=== PATIENT | female | born 1950 | race African-American/Black ===

== ENCOUNTER 2022-02-23 12:11 | Inpatient (IN) | payer MEDICARE, MEDICAID ==
[~2022-02-23] VITALS: Ht 170.2 cm; Wt 195.0 kg
[2022-02-23] VITALS (7 sets, daily range): BP systolic 99–134; BP diastolic 50–76
[~2022-02-23 12:11] MED LIST: LOVA10TA54 PO; METF-414 PO; METH-372 PO; METO25TA6 PO; NEBI5TAB3 PO; VALS160T2 PO
[2022-02-23] MEDS ORDERED: IPRATROPIUM BROMIDE (0.02%) 0.5MG/2.5ML NEB HHN STA (13:20)
[2022-02-23] MEDS ORDERED: ALBUTEROL (0.083%) 2.5MG/3ML NEB HHN STA (13:20)
[2022-02-23] MEDS ORDERED: FUROSEMIDE 40MG/4ML VIAL IVP ONE ×2 (13:30→16:21)
[2022-02-23 14:59] LABS: BASOPHILS % 0.7 % (0.0-2.0); EOSINOPHILS % 0.3 % (0.0-5.0); HEMATOCRIT. 42.4 % (36.0-48.0); HEMOGLOBIN. 13.3 g/dL (12.0-16.0); LYMPHOCYTES % 9.2 % (20.0-50.0); MEAN CORPUSCULAR VOLUME 86.1 fL (81.0-99.0); MEAN PLATELET VOLUME 8.7 fl (7.4-10.4); MONOCYTES % 8.2 % (2.0-8.0); NEUTROPHILS % 81.6 % (40.0-76.0); PLATELET 248 x1000/uL (130-400); RED BLOOD CELL COUNT 4.93 mill/uL (4.2-5.4); RED CELL DISTRIBUTION WIDTH 16.2 % (11.6-14.6)
[2022-02-23 15:02] LABS: CHLORIDE 99 mEq/L (98-107)
[2022-02-23] MEDS ORDERED: VANCOMYCIN 1G PREMIX 200 ML IV SCH ×2 (15:15→16:30)
[2022-02-23] MEDS ORDERED: LEVOFLOXACIN 500MG PREMIX 100 ML IV ONE (15:15)
[2022-02-23] MEDS: LISINOPRIL 10MG TABLET PO SCH (18:45)
[2022-02-23] MEDS ORDERED: CLONIDINE 0.1MG TABLET PO PRN (18:45)
[2022-02-23] MEDS ORDERED: IPRATROPIUM/ALBUTEROL 0.5-3(2.5)MG/3ML NEB HHN PRN (18:45)
[2022-02-23] MEDS ORDERED: LORAZEPAM 0.5MG TABLET PO PRN (18:45)
[2022-02-23] MEDS ORDERED: ONDANSETRON HCL 4MG/2ML INJ IV PRN (18:45)
[2022-02-23] MEDS: ENOXAPARIN 40MG/0.4ML SYR SUBCUT SCH (20:00)
[2022-02-23 20:50] LABS: CHLORIDE 103 mEq/L (98-107)
[2022-02-23] MEDS: METOPROLOL TARTRATE 25MG TABLET PO SCH (21:00)
[2022-02-23] MEDS: BLOOD SUGAR DIAGNOSTIC STRIP TEST SCH (21:17)
[2022-02-23] MEDS: FAMOTIDINE 20MG TABLET PO SCH (21:20)
[2022-02-23] MEDS: SODIUM CHLORIDE 0.9% INJ 3ML FLUSH IVF SCH (21:20)
[2022-02-23 23:27] LABS: CREATINE KINASE MB FRACTION 1.7 ng/mL (0.5-3.6)
[2022-02-24] VITALS (11 sets, daily range): BP systolic 100–130; BP diastolic 54–79
[2022-02-24] MEDS: SODIUM CHLORIDE 0.9% INJ 3ML FLUSH IVF SCH ×3 (05:35→21:34)
[2022-02-24 06:20] LABS: HEMOGLOBIN. 12.7 g/dL (12.0-16.0); LYMPHOCYTES % 17.8 % (20.0-50.0); MEAN CORPUSCULAR HEMOGLOBIN 27.1 pg (28.0-32.0); MEAN CORPUSCULAR VOLUME 85.2 fL (81.0-99.0); MEAN PLATELET VOLUME 7.9 fl (7.4-10.4); MONOCYTES % 12.3 % (2.0-8.0); NEUTROPHILS % 66.9 % (40.0-76.0); PLATELET 250 x1000/uL (130-400)
[2022-02-24 06:42] LABS: CREATINE KINASE MB FRACTION 1.3 ng/mL (0.5-3.6); T4 FREE 0.17 ng/dL (0.76-1.46)
[2022-02-24] MEDS: TRAMADOL 50MG TABLET PO PRN ×2 (07:11→11:32)
[2022-02-24] MEDS: BLOOD SUGAR DIAGNOSTIC STRIP TEST SCH ×5 (07:30→21:36)
[2022-02-24] MEDS ORDERED: BETAMETHASONE DIPROPIONATE 0.05% TOP SCH (09:00)
[2022-02-24] MEDS: METOPROLOL TARTRATE 25MG TABLET PO SCH (09:00)
[2022-02-24] MEDS: LISINOPRIL 10MG TABLET PO SCH (09:00)
[2022-02-24] MEDS ORDERED: FUROSEMIDE 40MG/4ML VIAL IV SCH (09:00)
[2022-02-24] MEDS: FAMOTIDINE 20MG TABLET PO SCH ×2 (09:07→21:32)
[2022-02-24] MEDS: ENOXAPARIN 40MG/0.4ML SYR SUBCUT SCH ×2 (09:08→21:30)
[2022-02-24] MEDS: ASPIRIN 81MG EC TABLET PO SCH (09:11)
[2022-02-24 10:32] LABS: CHLORIDE 102 mEq/L (98-107)
[2022-02-24] MEDS ORDERED: AZITHROMYCIN 500MG/250ML 250 ML IV SCH (11:15)
[2022-02-24 11:58] LABS: BG BASE EXCESS -1.5 mmol/L (-2.0-2.0); BG CARBOXYHEMOGLOBIN 0.7 % (0.5-1.5); BG DEOXYHEMOGLOBIN 9.7 % (0.0-5.0); BG FRACTION INSPIRED OXYGEN 21; BG HCO3 ACT 22.9 mmol/L (22.0-26.0); BG METHEMOGLOBIN 0.2 % (0.0-1.5); BG OXYGEN SATURATION 90.2 % (92.0-98.5); BG OXYHEMOGLOBIN 89.4 % (94.0-97.0); BG PCO2 37.5 mmHg (35.0-45.0); BG PH 7.403 (7.350-7.450); BG PO2 58.7 mmHg (75.0-100.0); BG SAMPLE SITE RIGHT RADIAL; BG TOTAL HEMOGLOBIN 14.3 g/dL (12.0-18.0); BG VENT MODE ROOM AIR
[2022-02-24] MEDS: METHYLPREDNISOLONE SOD SUCC 40 MG/ML VIAL IV SCH ×2 (12:51→21:34)
[2022-02-24] MEDS ORDERED: IOHEXOL-350 100 ML BOTTLE ONE (15:51)
[2022-02-24] MEDS: AZITHROMYCIN 500MG in DEXTROSE 5% WATER 250ML IV SCH ×2 (16:35→16:38)
[2022-02-24] MEDS: FUROSEMIDE 100MG/10ML VIAL IV SCH (18:45)
[2022-02-24] MEDS ORDERED: DEXTROSE 50% WATER 50ML SYRINGE IV PRN (20:30)
[2022-02-24] MEDS: INSULIN LISPRO 100 UNITS/ML SUBCUT SCH (21:33)
[2022-02-25] VITALS (13 sets, daily range): BP systolic 78–179; BP diastolic 45–119
[2022-02-25] MEDS: FUROSEMIDE 100MG/10ML VIAL IV SCH ×3 (01:03→18:04)
[2022-02-25] MEDS: TRAMADOL 50MG TABLET PO PRN ×3 (02:52→18:03)
[2022-02-25 05:25] LABS: CHLORIDE 102 mEq/L (98-107)
[2022-02-25 05:38] LABS: BASOPHILS % 0.3 % (0.0-2.0); EOSINOPHILS % 0.1 % (0.0-5.0); HEMATOCRIT. 42.9 % (36.0-48.0); HEMOGLOBIN. 13.3 g/dL (12.0-16.0); LYMPHOCYTES % 9.3 % (20.0-50.0); MEAN CORPUSCULAR HEMOGLOBIN 26.9 pg (28.0-32.0); MEAN PLATELET VOLUME 9.4 fl (7.4-10.4); MONOCYTES % 4.5 % (2.0-8.0); NEUTROPHILS % 85.8 % (40.0-76.0); PLATELET 201 x1000/uL (130-400); RED BLOOD CELL COUNT 4.93 mill/uL (4.2-5.4); RED CELL DISTRIBUTION WIDTH 16.2 % (11.6-14.6)
[2022-02-25] MEDS: SODIUM CHLORIDE 0.9% INJ 3ML FLUSH IVF SCH ×2 (06:00→21:30)
[2022-02-25] MEDS: METHYLPREDNISOLONE SOD SUCC 40 MG/ML VIAL IV SCH (06:00)
[2022-02-25] MEDS: BLOOD SUGAR DIAGNOSTIC STRIP TEST SCH ×7 (07:30→21:30)
[2022-02-25] MEDS: INSULIN LISPRO 100 UNITS/ML SUBCUT SCH ×4 (08:00→21:00)
[2022-02-25] MEDS: FAMOTIDINE 20MG TABLET PO SCH ×2 (09:45→21:26)
[2022-02-25] MEDS: LISINOPRIL 10MG TABLET PO SCH (09:45)
[2022-02-25] MEDS: LEVOTHYROXINE SODIUM 25MCG TABLET PO SCH (09:45)
[2022-02-25] MEDS: ENOXAPARIN 40MG/0.4ML SYR SUBCUT SCH ×2 (09:46→21:26)
[2022-02-25] MEDS: DILTIAZEM HCL 30MG TABLET PO SCH ×2 (14:24→21:30)
[2022-02-25] MEDS: AZITHROMYCIN 500MG in DEXTROSE 5% WATER 250ML IV SCH ×2 (14:25→14:30)
[2022-02-25] MEDS ORDERED: METHYLPREDNISOLONE SOD SUCC 40 MG/ML VIAL IV SCH (17:00)
[2022-02-26] VITALS (15 sets, daily range): BP systolic 86–139; BP diastolic 28–109
[2022-02-26] MEDS: FUROSEMIDE 100MG/10ML VIAL IV SCH ×3 (00:04→17:22)
[2022-02-26] MEDS: DILTIAZEM HCL 30MG TABLET PO SCH ×3 (06:00→22:05)
[2022-02-26] MEDS: SODIUM CHLORIDE 0.9% INJ 3ML FLUSH IVF SCH (06:23)
[2022-02-26 06:32] LABS: BASOPHILS % 0.2 % (0.0-2.0); HEMATOCRIT. 39.6 % (36.0-48.0); HEMOGLOBIN. 12.6 g/dL (12.0-16.0); LYMPHOCYTES % 8.5 % (20.0-50.0); MEAN CORPUSCULAR HEMOGLOBIN 27.7 pg (28.0-32.0); MEAN CORPUSCULAR VOLUME 86.8 fL (81.0-99.0); MEAN PLATELET VOLUME 7.7 fl (7.4-10.4); NEUTROPHILS % 83.3 % (40.0-76.0); PLATELET 289 x1000/uL (130-400); RED BLOOD CELL COUNT 4.56 mill/uL (4.2-5.4); RED CELL DISTRIBUTION WIDTH 16.2 % (11.6-14.6)
[2022-02-26 07:18] LABS: CHLORIDE 102 mEq/L (98-107)
[2022-02-26] MEDS: BLOOD SUGAR DIAGNOSTIC STRIP TEST SCH ×4 (07:30→21:00)
[2022-02-26] MEDS: INSULIN LISPRO 100 UNITS/ML SUBCUT SCH ×4 (08:00→21:00)
[2022-02-26] MEDS: LISINOPRIL 10MG TABLET PO SCH (09:00)
[2022-02-26] MEDS: FAMOTIDINE 20MG TABLET PO SCH ×2 (10:39→22:06)
[2022-02-26] MEDS: LEVOTHYROXINE SODIUM 25MCG TABLET PO SCH (10:39)
[2022-02-26] MEDS: MAGNESIUM OXIDE 400MG TABLET PO SCH (10:47)
[2022-02-26] MEDS ORDERED: MAGNESIUM 2 G PREMIX 50 ML IV NR (11:30)
[2022-02-26] MEDS: AZITHROMYCIN 500MG in DEXTROSE 5% WATER 250ML IV SCH (13:24)
[2022-02-26] MEDS ORDERED: NALOXONE HCL 0.4MG/ML VIAL IV PRN (15:30)
[2022-02-27] VITALS (15 sets, daily range): BP systolic 82–180; BP diastolic 39–97
[2022-02-27] MEDS: FUROSEMIDE 100MG/10ML VIAL IV SCH ×3 (01:00→10:09)
[2022-02-27] MEDS: TRAMADOL 50MG TABLET PO PRN ×2 (01:55→21:30)
[2022-02-27] MEDS: DILTIAZEM HCL 30MG TABLET PO SCH ×4 (05:29→21:26)
[2022-02-27] MEDS: LEVOTHYROXINE SODIUM 25MCG TABLET PO SCH ×2 (06:35→10:10)
[2022-02-27] MEDS: BLOOD SUGAR DIAGNOSTIC STRIP TEST SCH ×4 (07:30→21:00)
[2022-02-27] MEDS: INSULIN LISPRO 100 UNITS/ML SUBCUT SCH ×4 (08:00→21:00)
[2022-02-27 08:42] LABS: BASOPHILS % 0.3 % (0.0-2.0); EOSINOPHILS % 1.1 % (0.0-5.0); HEMOGLOBIN. 15.1 g/dL (12.0-16.0); LYMPHOCYTES % 15.6 % (20.0-50.0); MEAN CORPUSCULAR HEMOGLOBIN 27.4 pg (28.0-32.0); MEAN CORPUSCULAR VOLUME 90.9 fL (81.0-99.0); MEAN PLATELET VOLUME 8.8 fl (7.4-10.4); MONOCYTES % 11.9 % (2.0-8.0); NEUTROPHILS % 71.1 % (40.0-76.0); PLATELET 130 x1000/uL (130-400); RED BLOOD CELL COUNT 5.51 mill/uL (4.2-5.4); RED CELL DISTRIBUTION WIDTH 17.4 % (11.6-14.6)
[2022-02-27] MEDS: LISINOPRIL 10MG TABLET PO SCH (09:00)
[2022-02-27 09:09] LABS: CHLORIDE 104 mEq/L (98-107)
[2022-02-27] MEDS: FAMOTIDINE 20MG TABLET PO SCH ×2 (10:09→21:26)
[2022-02-27] MEDS: AZITHROMYCIN 500 MG TABLET PO SCH (10:10)
[2022-02-27] MEDS: MAGNESIUM OXIDE 400MG TABLET PO SCH (10:10)
[2022-02-27] MEDS: SODIUM CHLORIDE 0.9% INJ 3ML FLUSH IVF SCH ×2 (14:00→22:00)
[2022-02-27 17:01] LABS: INR 1.2; PARTIAL THROMBOPLASTIN TIME 29.7 sec (23.4-31.0); PROTHROMBIN TIME 12.3 sec (9.6-11.0)
[2022-02-28] VITALS (13 sets, daily range): BP systolic 104–144; BP diastolic 37–82
[2022-02-28] MEDS: FUROSEMIDE 100MG/10ML VIAL IV SCH ×3 (01:18→23:10)
[2022-02-28] MEDS: SODIUM CHLORIDE 0.9% INJ 3ML FLUSH IVF SCH ×3 (06:36→22:00)
[2022-02-28] MEDS: DILTIAZEM HCL 30MG TABLET PO SCH ×3 (06:36→23:09)
[2022-02-28] MEDS: LEVOTHYROXINE SODIUM 25MCG TABLET PO SCH (06:36)
[2022-02-28] MEDS: BLOOD SUGAR DIAGNOSTIC STRIP TEST SCH ×4 (07:47→21:00)
[2022-02-28] MEDS: INSULIN LISPRO 100 UNITS/ML SUBCUT SCH ×4 (08:00→21:00)
[2022-02-28] MEDS: MAGNESIUM OXIDE 400MG TABLET PO SCH (09:00)
[2022-02-28] MEDS: AZITHROMYCIN 500 MG TABLET PO SCH (09:00)
[2022-02-28] MEDS: LISINOPRIL 10MG TABLET PO SCH (10:16)
[2022-02-28] MEDS: FAMOTIDINE 20MG TABLET PO SCH ×2 (10:16→23:06)
[2022-02-28] MEDS ORDERED: TRAMADOL 50MG TABLET PO NR (23:00)
[2022-03-01] VITALS (12 sets, daily range): BP systolic 96–141; BP diastolic 57–94
[2022-03-01] MEDS: SODIUM CHLORIDE 0.9% INJ 3ML FLUSH IVF SCH ×3 (06:00→21:12)
[2022-03-01] MEDS: DILTIAZEM HCL 30MG TABLET PO SCH ×3 (07:15→21:11)
[2022-03-01] MEDS: LEVOTHYROXINE SODIUM 25MCG TABLET PO SCH (07:15)
[2022-03-01] MEDS: INSULIN LISPRO 100 UNITS/ML SUBCUT SCH ×4 (08:00→21:12)
[2022-03-01] MEDS: BLOOD SUGAR DIAGNOSTIC STRIP TEST SCH ×4 (08:01→21:12)
[2022-03-01] MEDS: ASPIRIN 81MG EC TABLET PO SCH (08:25)
[2022-03-01] MEDS: FAMOTIDINE 20MG TABLET PO SCH ×2 (08:25→21:10)
[2022-03-01] MEDS: ENOXAPARIN 40MG/0.4ML SYR SUBCUT SCH ×2 (08:25→21:10)
[2022-03-01] MEDS: LISINOPRIL 10MG TABLET PO SCH (08:26)
[2022-03-01] MEDS: MAGNESIUM OXIDE 400MG TABLET PO SCH (08:26)
[2022-03-01] MEDS: FUROSEMIDE 100MG/10ML VIAL IV SCH ×2 (09:21→21:12)
[2022-03-01 17:37] LABS: BASOPHILS % 0.6 % (0.0-2.0); EOSINOPHILS % 2.3 % (0.0-5.0); HEMATOCRIT. 41.2 % (36.0-48.0); HEMOGLOBIN. 13.2 g/dL (12.0-16.0); LYMPHOCYTES % 18.4 % (20.0-50.0); MEAN CORPUSCULAR HEMOGLOBIN 27.7 pg (28.0-32.0); MEAN CORPUSCULAR VOLUME 86.6 fL (81.0-99.0); MEAN PLATELET VOLUME 7.6 fl (7.4-10.4); MONOCYTES % 14.8 % (2.0-8.0); NEUTROPHILS % 63.9 % (40.0-76.0); PLATELET 221 x1000/uL (130-400); RED BLOOD CELL COUNT 4.76 mill/uL (4.2-5.4); RED CELL DISTRIBUTION WIDTH 16.2 % (11.6-14.6)
[2022-03-01 17:48] LABS: CHLORIDE 95 mEq/L (98-107)
[2022-03-01] MEDS ORDERED: POTASSIUM CHLORIDE 20MEQ TABLET SR PO NR (20:30)
[2022-03-02] VITALS (10 sets, daily range): BP systolic 97–163; BP diastolic 47–104
[2022-03-02] MEDS: SODIUM CHLORIDE 0.9% INJ 3ML FLUSH IVF SCH ×3 (06:00→21:44)
[2022-03-02] MEDS: DILTIAZEM HCL 30MG TABLET PO SCH ×3 (06:01→21:40)
[2022-03-02 06:21] LABS: HEMOGLOBIN. 13.8 g/dL (12.0-16.0); MEAN CORPUSCULAR HEMOGLOBIN 27.4 pg (28.0-32.0); MEAN CORPUSCULAR VOLUME 85.2 fL (81.0-99.0); MEAN PLATELET VOLUME 7.7 fl (7.4-10.4); PLATELET 210 x1000/uL (130-400); RED BLOOD CELL COUNT 5.05 mill/uL (4.2-5.4); RED CELL DISTRIBUTION WIDTH 16.2 % (11.6-14.6)
[2022-03-02 06:50] LABS: CHLORIDE 96 mEq/L (98-107)
[2022-03-02] MEDS: INSULIN LISPRO 100 UNITS/ML SUBCUT SCH ×4 (08:00→21:00)
[2022-03-02] MEDS: LEVOTHYROXINE SODIUM 25MCG TABLET PO SCH (08:22)
[2022-03-02] MEDS: FAMOTIDINE 20MG TABLET PO SCH ×2 (08:22→21:38)
[2022-03-02] MEDS: LISINOPRIL 10MG TABLET PO SCH (08:22)
[2022-03-02] MEDS: ENOXAPARIN 40MG/0.4ML SYR SUBCUT SCH ×2 (08:23→21:38)
[2022-03-02] MEDS: ASPIRIN 81MG EC TABLET PO SCH (08:23)
[2022-03-02] MEDS: MAGNESIUM OXIDE 400MG TABLET PO SCH (08:24)
[2022-03-02] MEDS: BLOOD SUGAR DIAGNOSTIC STRIP TEST SCH ×4 (08:24→21:40)
[2022-03-02] MEDS ORDERED: POTASSIUM CHLORIDE 20MEQ TABLET SR PO SCH (10:00)
[2022-03-02] MEDS: FUROSEMIDE 100MG/10ML VIAL IV SCH ×2 (10:57→21:38)
[2022-03-02 21:58] LABS: PLATELET ESTIMATE NORMAL
[2022-03-03] VITALS (11 sets, daily range): BP systolic 102–152; BP diastolic 59–79
[2022-03-03 06:11] LABS: HEMATOCRIT. 42.2 % (36.0-48.0); HEMOGLOBIN. 13.5 g/dL (12.0-16.0); MEAN CORPUSCULAR HEMOGLOBIN 27.5 pg (28.0-32.0); MEAN CORPUSCULAR VOLUME 85.7 fL (81.0-99.0); MEAN PLATELET VOLUME 7.6 fl (7.4-10.4); PLATELET 219 x1000/uL (130-400); RED BLOOD CELL COUNT 4.93 mill/uL (4.2-5.4); RED CELL DISTRIBUTION WIDTH 15.9 % (11.6-14.6)
[2022-03-03] MEDS: SODIUM CHLORIDE 0.9% INJ 3ML FLUSH IVF SCH ×3 (06:28→20:55)
[2022-03-03] MEDS: DILTIAZEM HCL 30MG TABLET PO SCH ×3 (06:29→20:57)
[2022-03-03] MEDS: LEVOTHYROXINE SODIUM 25MCG TABLET PO SCH (06:29)
[2022-03-03] MEDS: BLOOD SUGAR DIAGNOSTIC STRIP TEST SCH ×4 (07:30→20:52)
[2022-03-03] MEDS: INSULIN LISPRO 100 UNITS/ML SUBCUT SCH ×4 (08:00→20:53)
[2022-03-03 09:09] LABS: CHLORIDE 95 mEq/L (98-107)
[2022-03-03] MEDS: FAMOTIDINE 20MG TABLET PO SCH ×2 (09:10→20:54)
[2022-03-03] MEDS: ENOXAPARIN 40MG/0.4ML SYR SUBCUT SCH ×2 (09:12→20:54)
[2022-03-03] MEDS: LISINOPRIL 10MG TABLET PO SCH (09:12)
[2022-03-03] MEDS: ASPIRIN 81MG EC TABLET PO SCH (09:13)
[2022-03-03] MEDS: FUROSEMIDE 100MG/10ML VIAL IV SCH ×2 (09:13→20:54)
[2022-03-03] MEDS: MAGNESIUM OXIDE 400MG TABLET PO SCH (09:14)
[2022-03-03 14:22] LABS: PLATELET ESTIMATE NORMAL
[2022-03-04] VITALS (13 sets, daily range): BP systolic 100–130; BP diastolic 48–83
[2022-03-04] MEDS: SODIUM CHLORIDE 0.9% INJ 3ML FLUSH IVF SCH ×3 (05:16→22:00)
[2022-03-04] MEDS: DILTIAZEM HCL 30MG TABLET PO SCH ×3 (06:22→22:00)
[2022-03-04] MEDS: INSULIN LISPRO 100 UNITS/ML SUBCUT SCH ×4 (08:00→21:00)
[2022-03-04] MEDS: BLOOD SUGAR DIAGNOSTIC STRIP TEST SCH ×4 (08:56→21:00)
[2022-03-04] MEDS: LISINOPRIL 10MG TABLET PO SCH (09:14)
[2022-03-04] MEDS: FUROSEMIDE 100MG/10ML VIAL IV SCH (09:14)
[2022-03-04] MEDS: ASPIRIN 81MG EC TABLET PO SCH (09:15)
[2022-03-04] MEDS: LEVOTHYROXINE SODIUM 25MCG TABLET PO SCH (09:15)
[2022-03-04] MEDS: ENOXAPARIN 40MG/0.4ML SYR SUBCUT SCH (09:15)
[2022-03-04] MEDS: FAMOTIDINE 20MG TABLET PO SCH ×2 (09:15→21:51)
[2022-03-04] MEDS: MAGNESIUM OXIDE 400MG TABLET PO SCH (09:15)
[2022-03-04] MEDS ORDERED: APIX2.5T PO (11:36)
[2022-03-04 11:42] LABS: HEMATOCRIT. 41.2 % (36.0-48.0); HEMOGLOBIN. 13.3 g/dL (12.0-16.0); MEAN CORPUSCULAR HEMOGLOBIN 27.6 pg (28.0-32.0); MEAN CORPUSCULAR VOLUME 85.6 fL (81.0-99.0); MEAN PLATELET VOLUME 7.6 fl (7.4-10.4); PLATELET 186 x1000/uL (130-400); RED BLOOD CELL COUNT 4.81 mill/uL (4.2-5.4); RED CELL DISTRIBUTION WIDTH 16.5 % (11.6-14.6)
[2022-03-04 12:10] LABS: CHLORIDE 94 mEq/L (98-107)
[2022-03-04 12:25] LABS: PLATELET ESTIMATE NORMAL
[2022-03-04] MEDS ORDERED: POTASSIUM CHLORIDE 20MEQ TABLET SR PO NR (13:09)
[2022-03-04] MEDS: APIXABAN 5 MG TABLET PO SCH (16:27)
[2022-03-04] MEDS ORDERED: ACETAMINOPHEN 325MG TABLET PO PRN (16:30)
[2022-03-04] MEDS: FUROSEMIDE 40MG TABLET PO SCH (21:51)
[2022-03-05] VITALS: BP 131/53
[2022-03-05 04:00] VITALS: BP 98/61
[2022-03-05 06:00] VITALS: BP 112/80
[2022-03-05] MEDS: SODIUM CHLORIDE 0.9% INJ 3ML FLUSH IVF SCH (06:00)
[2022-03-05] MEDS: LEVOTHYROXINE SODIUM 25MCG TABLET PO SCH (06:32)
[2022-03-05] MEDS: DILTIAZEM HCL 30MG TABLET PO SCH (06:32)
[2022-03-05] MEDS: INSULIN LISPRO 100 UNITS/ML SUBCUT SCH (08:00)
[2022-03-05] MEDS: ASPIRIN 81MG EC TABLET PO SCH (08:23)
[2022-03-05] MEDS: FAMOTIDINE 20MG TABLET PO SCH (08:23)
[2022-03-05] MEDS: FUROSEMIDE 40MG TABLET PO SCH (08:23)
[2022-03-05] MEDS: BLOOD SUGAR DIAGNOSTIC STRIP TEST SCH (08:24)
[2022-03-05] MEDS: APIXABAN 5 MG TABLET PO SCH (08:31)
== END 2022-03-05 10:25 | disposition home health service (06) | DRG 280 ==
LOC: ER 12:47 → ENRESERV 15:44 → 5EST 16:49
PROVIDERS: ADMIT Internal Medicine; ATTEND Internal Medicine
PROC: 05H533Z Insertion of Infusion Device into Right Subclavian Vein, Percutaneous Approach (ICD-10-PCS; 2022-02-24)
PROC: B546ZZA Ultrasonography of Right Subclavian Vein, Guidance (ICD-10-PCS; 2022-02-24)
PROC: 0W9B3ZZ Drainage of Left Pleural Cavity, Percutaneous Approach (ICD-10-PCS; principal; 2022-02-28)
DX: I11.0 Hypertensive heart disease with heart failure (principal); I21.A1 Myocardial infarction type 2; I50.23 Acute on chronic systolic (congestive) heart failure; J96.21 Acute and chronic respiratory failure with hypoxia; J12.9 Viral pneumonia, unspecified; J44.1 Chronic obstructive pulmonary disease with (acute) exacerbation; Z68.44 Body mass index [BMI] 60.0-69.9, adult; E66.2 Morbid (severe) obesity with alveolar hypoventilation; J91.8 Pleural effusion in other conditions classified elsewhere; E44.0 Moderate protein-calorie malnutrition; I48.92 Unspecified atrial flutter; D68.59 Other primary thrombophilia; J44.0 Chronic obstructive pulmonary disease with (acute) lower respiratory infection; E03.9 Hypothyroidism, unspecified; E11.9 Type 2 diabetes mellitus without complications; I48.91 Unspecified atrial fibrillation; I27.20 Pulmonary hypertension, unspecified; E78.5 Hyperlipidemia, unspecified; I48.0 Paroxysmal atrial fibrillation; E87.6 Hypokalemia; E83.42 Hypomagnesemia; M16.11 Unilateral primary osteoarthritis, right hip; M17.0 Bilateral primary osteoarthritis of knee; Z96.651 Presence of right artificial knee joint; Z79.01 Long term (current) use of anticoagulants; Z79.899 Other long term (current) drug therapy; Z79.84 Long term (current) use of oral hypoglycemic drugs; Z86.73 Personal history of transient ischemic attack (TIA), and cerebral infarction without residual deficits; Z74.01 Bed confinement status; Z99.81 Dependence on supplemental oxygen; Z90.49 Acquired absence of other specified parts of digestive tract; Z82.49 Family history of ischemic heart disease and other diseases of the circulatory system
CPT/HCPCS: 32555; 36415; 36573; 36600; 71045; 71275; 73521; 80048; 80053; 80061; 80076; 82040; 82375; 82550; 82553; 82805; 82962; 83036; 83605; 83615; 83735; 83880; 84145; 84439; 84443; 84484; 85025; 87426; 88108; 93005; 93306; 93970; 97162; 97165; 99291; C1725; C9803; J0456; J1650; J1815; J1940; J1956; J2920; J3370; J3475; J7060; Q9967; A4315